=== PATIENT | male | born 1955 ===

== ENCOUNTER → 2021-12-12 | Outpatient (CLI) | payer OTHER, MEDICAID ==
--- NOTE | 2021-12-12 11:44 | KCIC ---
EXAM: Brain MRI without contrast. HISTORY: Confusion. Falls. TECHNIQUE: Multiplanar, multisequence magnetic resonance imaging of the brain was performed without c ontrast. COMPARISON: None. FINDINGS: There is no restricted diffusion to suggest acute or subacute infarction. There is no susce ptibility effect to suggest hemorrhage. There is no mass effect or midline shift. There is no hydroce phalus. There are a few scattered foci of T2/FLAIR hyperintensity within the cerebral white matter. The orbits are unremarkable. There is a small amount of fluid within the left mastoid air cells. Ther e is a large mucous retention cyst within the left maxillary sinus. There are a few tiny right maxill kinga sinus mucous retention cysts. There is mild paranasal sinus mucosal thickening. There are normal flow voids within the cerebral vessels. There is no suspicious calvarial lesion. IMPRESSION: 1. No acute intracranial finding. 2. Scattered foci of signal change within the cerebral white, likely due to chronic small vessel dise ase in a patient of this age. Electronically signed by: Delisa Nicolas MD (12/12/2021 11:42 AM) [id number]
== END ==
LOC: KCIC MRI 09:47
PROVIDERS: ATTEND Nurse Practitioner Family
DX: G31.84 Mild cognitive impairment of uncertain or unknown etiology (principal); R29.6 Repeated falls; K11.6 Mucocele of salivary gland; R47.81 Slurred speech
CPT/HCPCS: 70551